=== PATIENT | male | born 1965 | race American Indian/Alaskan Native ===

== ENCOUNTER 2019-07-31 08:14 | Emergency (ER) | payer SELFPAY ==
[2019-07-31] MEDS ORDERED: SODIUM CHLORIDE 0.9% 1000 ML 1,000 ML IV ONE ×2 (08:25→09:16)
--- NOTE | 2019-07-31 08:31 | Emergency Department Report ---
ED Syncope HPI - General Stated Complaint: HYPERGLYCEMIA Time Seen by Provider: 07/31/19 08:25 Source: patient, EMS Exam Limitations: no limitations - History of Present Illness Initial Comments: Mr. Galaviz is a very pleasant 53-year-old male without significant past medical history who presents with syncopal episode at a [employer] store. This is the second such episode in the last 2 days. 2 days ago EMS was called for syncope at a convenience store. Blood sugar was high at that time. Again blood sugar was greater than 400 per EMS today. Blood pressure also noted to be elevated. This gentleman has been in good health recently. He did not have any preceding symptoms of lightheadedness. For the past 4 to 5 months has had epigastric discomfort. He is treated the abdominal pain with omeprazole. He does not have a primary care physician. There is a family history of diabetes mellitus. He is currently symptom-free. He denies chest pain, palpitations, shortness of breath or headache. He does not smoke tobacco. He drinks alcohol on a monthly basis. Last use of alcohol 1 month ago. Timing/Prior Episodes: recent history Precipitating Factors: Positive: none Context: standing Loss of Consciousness: brief (seconds) Current Symptoms: back to normal - Related Data Allergies/Adverse Reactions: Allergies No Known Allergies Allergy (Unverified 07/31/19 08:52) Home Medications: Ambulatory Orders metFORMIN [Glucophage] 500 mg PO BID 30 Days #60 tablet 07/31/19 ED Review of Systems ROS: Stated complaint: HYPERGLYCEMIA Other details as noted in HPI Comment: All other systems reviewed and negative Constitutional: denies: fever, malaise Respiratory: denies: cough, shortness of breath Cardiovascular: syncope. denies: chest pain Gastrointestinal: abdominal pain. denies: nausea, vomiting Neurological: denies: headache ED Past Medical Hx - Past Medical History Previous Medical History?: No - Family History Family history: diabetes - Social History Smoking Status: Never Smoker Substance Use Type: Alcohol - Medications Home Medications: Home Medications Medication Instructions Recorded Confirmed Last Taken Type metFORMIN [Glucophage] 500 mg PO BID 30 Days #60 tablet 07/31/19 Unknown Rx ED Physical Exam - General General appearance: alert, in no apparent distress, other (Ambulatory to the stroom without difficulty steady gait) - Head Head exam: Present: atraumatic, normocephalic - Eye Eye exam: Present: normal appearance - ENT ENT exam: Present: mucous membranes moist - Neck Neck exam: Present: normal inspection, full ROM - Respiratory Respiratory exam: Present: normal lung sounds bilaterally. Absent: respiratory distress, wheezes, rales, rhonchi - Cardiovascular Cardiovascular Exam: Present: regular rate, normal rhythm, normal heart sounds. Absent: systolic murmur, diastolic murmur, rubs, gallop - GI/Abdominal GI/Abdominal exam: Present: soft, normal bowel sounds. Absent: distended, tenderness, guarding, rebound - Rectal Rectal exam: Present: deferred - Extremities Exam Extremities exam: Present: normal inspection - Neurological Exam Neurological exam: Present: alert, oriented X3 - Psychiatric Psychiatric exam: Present: normal affect, normal mood - Skin Skin exam: Present: warm, dry, intact, normal color. Absent: rash ED Course Vital Signs 07/31/19 07/31/19 07/31/19 08:31 08:49 09:31 Temperature 98.3 F 98.3 F Pulse Rate 99 H 99 H Pulse Rate [ 94 H Lying] Pulse Rate [ 95 H Sitting] Pulse Rate [ 104 H Standing] Respiratory 16 17 17 Rate Blood Pressure 163/82 Blood Pressure 165/88 165/88 [Left] Blood Pressure 163/85 [Lying] Blood Pressure 167/92 [Sitting] Blood Pressure 140/79 [Standing] O2 Sat by Pulse 99 100 100 Oximetry ED Medical Decision Making - Lab Data Result diagrams: 07/31/19 08:39 07/31/19 08:39 - EKG Data EKG shows normal: sinus rhythm, axis, intervals, QRS complexes, ST-T waves Rate: normal - EKG Data Interpretation: normal EKG - Medical Decision Making Mr. Galaviz presents with recurrent syncope noted to have hyperglycemia on both occasions. New onset diabetes mellitus established toda. I suspect syncope is due to orthostasis due to volume contraction with prolonged hyperglycemia. He has normal EKG. He does not have any risk factors for venous thromboembolism. I do not suspect arrhythmia or cardiac cause for syncope. I have prescribed metformin. I provided verbal and written education regarding his new diagnosis of diabetes. Given referral to outpatient physician. Labs notable for blood sugar 482 urinalysis without ketosis mild anemia, was normal kidney function I suspect 5.7 potassium to be hemolyzed. Repeat blood sugar 353 after IV fluid hydration. Critical care attestation.: If time is entered above; I have spent that time in minutes in the direct care of this critically ill patient, excluding procedure time. ED Disposition Clinical Impression: Syncope, New onset type 2 diabetes mellitus, Acute hyperglycemia Disposition: TO HOME OR SELFCARE Is pt being admited?: No Does the pt Need Aspirin: No Condition: Stable Instructions: Syncope (ED), Diabetes Mellitus Type 2 in Adults (ED) Prescriptions: metFORMIN [Glucophage] 500 mg PO BID 30 Days #60 tablet Referrals: JULIEN BARROSO MD [Staff Physician] - 3-5 Days
[2019-07-31 09:13] LABS: Basophils # (Auto) 0.1 K/mm3 (0.0-0.1); Basophils % (Auto) 1.3 % (0.0-1.8); Eosinophils # (Auto) 0.1 K/mm3 (0.0-0.4); Hematocrit 30.5 % (35.5-45.6); Hemoglobin 10.5 gm/dl (11.8-15.2); Lymphocytes # (Auto) 1.4 K/mm3 (1.2-5.4); Mean Corpuscular HGB Conc 34 % (32-34); Mean Corpuscular Volume 81 fl (84-94); Monocytes # (Auto) 0.6 K/mm3 (0.0-0.8); Monocytes % (Auto) 7.7 % (0.0-7.3); Platelet Count 418 K/mm3 (140-440); Red Blood Count 3.79 M/mm3 (3.65-5.03); Red Cell Distribution Width 13.9 % (13.2-15.2)
[2019-07-31 09:40] LABS: Bilirubin,Urine NEG (Negative); Blood,Urine SM (Negative); Color,Urine Colorless (Yellow); Protein,Urine <15 mg/dL mg/dL (Negative); Urobilinogen,Urine < 2.0 mg/dL (<2.0); WBC,Urine < 1.0 /HPF (0.0-6.0)
[2019-07-31 09:41] LABS: Alanine Aminotransferase 84 units/L (7-56); Albumin 4.2 g/dL (3.9-5); BUN/Creatinine Ratio 12; Blood Urea Nitrogen 11 mg/dL (9-20); Calcium 9.1 mg/dL (8.4-10.2); Hemolysis Index 12
[2019-07-31 12:38] VITALS: BP 154/87
== END 2019-07-31 12:40 | disposition home or self-care (01) ==
LOC: ED 08:14
DX: E11.65 Type 2 diabetes mellitus with hyperglycemia (principal); R55 Syncope and collapse
CPT/HCPCS: 36415; 80053; 81001; 82805; 82962; 83735; 84484; 85025; 93005; 93010; 96360; 96361; 99285; J7030